=== PATIENT | female | born 1995 | race Two or more races ===

== ENCOUNTER 2024-02-02 13:58 | Outpatient (REF) | payer OTHER, SELFPAY ==
--- NOTE | ~2024-02-02 | MR_ITS ---
EXAMINATION: MR ANKLE WITHOUT CONTRAST, RIGHT CLINICAL INFORMATION: Pain ankle joint. COMPARISON: None available. TECHNIQUE: MRI of the ankle was performed using routine sequences on a high-field scanner. FINDINGS: SUBCUTANEOUS SOFT TISSUES: Normal. PLANTAR FASCIA: Normal. MUSCLES/TENDONS: Normal. NEUROVASCULAR STRUCTURES/TARSAL TUNNEL: Normal. LIGAMENTS: Anterior Talofibular Ligament: There is heterogeneous increased signal and thickening of the ligament compatible with subacute partial tear. Deltoid Ligament: Question slight heterogeneity which could reflect normal variation or minimal partial tear. Question normal variation versus minimal partial tearing. Remaining ligaments are intact. BONE/CARTILAGE: There is subtle bone marrow edema present within the distal aspect of the medial malleolus and medial aspect of the talus at the level of the deltoid attachment. Findings are compatible with bone contusion or perhaps reactive related to subtle partial tear of the deltoid ligament. Bone and joints are otherwise unremarkable. MR/MR ankle RT wo con IMPRESSION: 1. Subacute partial tear of the anterior talofibular ligament. 2. Possible normal variation versus minimal partial tearing of the deltoid ligament. 3. Bone contusion of the medial malleolus and medial talus at the deltoid ligament attachment versus reactive edema related to the subtle partial tearing of the deep fibers of the ligament.
== END 2024-02-02 13:59 | disposition home or self-care (01) ==
LOC: HO.MRI 13:58
PROVIDERS: PCP Family Medicine Sports Medicine; Visit Provider Family Medicine Sports Medicine
DX: M25.571 Pain in right ankle and joints of right foot (principal)
CPT/HCPCS: 73721